=== PATIENT | male | born 1970 | race African-American/Black ===

== ENCOUNTER 2017-05-01 19:32 | Emergency (ER) | payer SELFPAY ==
[~2017-05-01] VITALS: Ht 175.3 cm; Wt 67.7 kg
[~2017-05-01 19:32] MED LIST: HYDR-3533 PO
[2017-05-01 19:38] VITALS: BP 122/71; PULSE 67; RESP 18; TEMP 97.8; O2SAT 99
[2017-05-01] MEDS ORDERED: CIPROFLOXACIN 0.3% OPTH SOLN 2.5 ML BTL RIGHT EYE ONE (20:45)
[2017-05-01] MEDS ORDERED: ERYTOIN10 RIGHT EYE (20:47)
[2017-05-01] MEDS ORDERED: CIPR0.3S2 RIGHT EYE (20:47)
--- NOTE | 2017-05-01 20:48 | PD ---
HPI . Right eye pain (Lola Broussard) Chief Complaint: Eye Problems/Injury Time Seen by Provider: 20:30 (Lola Broussard) Time Seen by Provider: 20:28 (Jael Newton) Travel History International Travel<30 days: No Contact w/Intl Traveler<30days: No Traveled to known affect area: No (Lola Broussard) History of Present Illness HPI 47-year-old male patient presents emergency department for evaluation of right eye pain. Patient was hit in the eye with a branch from a tree earlier today around 4 PM. Patient has had blurred vision and eye pain since that event. Patient does not wear glasses or contacts. Patient denies any other physiological complaint at this time. Patient has no major medical history. Takes no daily medication and has no known allergies. (Lola Broussard) PFSH Past Medical History Blood Disorders: No Cancer: No Cardiovascular Problems: No Diminished Hearing: No Endocrine: No Genitourinary: No Immune Disorder: No Musculoskeletal: No Neurologic: No Psychiatric: No Respiratory: No Immunizations Current: Yes Influenza Vaccination: Yes (Lola Broussard) Past Surgical History AICD: No Joint Replacement: No Pacemaker: No (Lola Broussard) Social History Alcohol Use: Yes (6 PACK PER DAY) Tobacco Use: Yes (1/2 PPD/BLACK AND MILDS) Substance Use: Yes (MARIJUANA - DAILY) (Lola Broussard) Allergies-Medications (Allergen,Severity, Reaction): Coded Allergies: No Known Allergies (Verified , 05/01/17) Reported Meds & Prescriptions Reported Meds & Active Scripts Active Erythromycin Opth Oint 5 Mg/Gm Oint 1 Applic RIGHT EYE QID Ciprofloxacin Opth Drops (Ciprofloxacin HCl) 0.3% Soln 2 Drop RIGHT EYE QID while awake x 5 days. (Jael Newton) Review of Systems Except as stated in HPI: all other systems reviewed are Neg (Lola Broussard) Physical Exam Narrative GENERAL: Well-nourished, well-developed 47-year-old male patient in no acute distress. Holding hand over right eye. SKIN: Focused skin assessment warm/dry. HEAD: Normocephalic. Atraumatic EYES: Right eye injected. Fluorescein dye uptake located at 7o'clock over the iris in the central vision. No hyphema or subconjunctival hemorrhage. PERRLA demonstrated, extraocular motions intact bilaterally. Visual acuity: Right eye 20/50, left eye 20/20, bilateral eyes 20/30 NECK: Supple, trachea midline. No JVD or lymphadenopathy. CARDIOVASCULAR: Regular rate and rhythm without murmurs, gallops, or rubs. RESPIRATORY: Breath sounds equal bilaterally. No accessory muscle use. GASTROINTESTINAL: Abdomen soft, non-tender, nondistended. MUSCULOSKELETAL: No cyanosis, or edema. BACK: Nontender without obvious deformity. No CVA tenderness. (Lola Broussard) Data Data Last Documented VS Vital Signs Date Time Temp Pulse Resp B/P (MAP) Pulse Ox O2 Delivery O2 Flow Rate FiO2 05/01/17 19:38 97.8 67 18 122/71 (88) 99 (Jael Newton) Orders Orders Ciprofloxacin 0.3% Opth Soln (Ciloxan 0. (05/01/17 20:45) Mandatory Outpatient Referral (05/01/17 20:36) (Jael Newton) [facility] Medical Decision Making Medical Screen Exam Complete: Yes Emergency Medical Condition: Yes Differential Diagnosis Differential diagnoses include but not limited to corneal abrasion, corneal ulceration, foreign body in the right eye, periorbital cellulitis Narrative Course 47-year-old male patient presents emergency department for evaluation of right eye pain after getting hit in the eye with a tree branch. Patient denies any major medical history. Patient does not wear glasses or contacts. Fluorescein dye and Pedersen lamp or used to evaluate him for abrasion or foreign bodies. There was fluorescein dye uptake at 7:00 in the right eye over the iris in the central vision. The patient does not have medical insurance. Therefore a mandatory referral be placed for ophthalmology to follow-up with him. Patient will be discharged home with erythromycin eye ointment and ciprofloxacin eyedrops and instructions to follow-up with ophthalmology on Thursday or Thursday. (Lola Broussard) Diagnosis Primary Impression: Corneal abrasion, right Qualified Codes: S05.01XA - Injury of conjunctiva and corneal abrasion without foreign body, right eye, initial encounter Referrals: Medical Staff Assistant Patient Instructions: Corneal Abrasion (ED), General Instructions Additional Instructions: Please return to emergency department if your symptoms return or worsen. Mandatory referral placed for ophthalmology. The hospital will contact you to arrange this appointment. Follow up with your primary care provider. Take medications as prescribed. Med/Other Pt SpecificInfo: Prescription(s) given (Lola Broussard) Disposition: 01 DISCHARGE HOME Condition: Stable Lola Broussard May 01, 2017 20:48 Jael Newton May 01, 2017 20:56
== END 2017-05-01 21:01 | disposition home or self-care (01) ==
LOC: PHEFT 19:32
DX: S05.01XA Injury of conjunctiva and corneal abrasion without foreign body, right eye, initial encounter (principal); F17.200 Nicotine dependence, unspecified, uncomplicated; W22.8XXA Striking against or struck by other objects, initial encounter; Z79.899 Other long term (current) drug therapy
CPT/HCPCS: 99284